=== PATIENT | male | born 1940 | race Caucasian/White ===

== ENCOUNTER 2017-07-20 15:42 | Emergency (ER) | payer OTHER, MEDICARE ==
[~2017-07-20] VITALS: Ht 177.8 cm; Wt 78.3 kg
[2017-07-20] MEDS ORDERED: PRAVACHOL80 MG PO (16:12)
[2017-07-20] MEDS ORDERED: HYDROCHLOROTHIA25 MG PO (16:12)
[2017-07-20] MEDS ORDERED: ZESTRIL2.5 MG PO (16:12)
[2017-07-20] MEDS ORDERED: PRADAXA150 MG PO (16:12)
[2017-07-20] MEDS ORDERED: SYNTHROID25 MCG PO (16:13)
[2017-07-20 17:11] LABS: HEMATOCRIT 36.9 % (38.0-50.0); MCH 31.8 PG (29.0-34.0); MCHC 34.4 G/DL (30.0-36.0); MCV 92.3 FL (86-99); MEAN PLAT.VOLUME 9.9 uM^3 (9.0-12.4); PLATELET COUNT 191 K/uL (156-360); RBC DIS.WIDTH-CV 13.3 % (11.8-14.6); RBC DIS.WIDTH-SD 45.5 % (39-53); WHITE BLOOD COUNT 6.3 K/uL (4.1-10.2)
[2017-07-20 17:20] LABS: CHLORIDE 103 mEq/L (99-109); POTASSIUM 3.7 mEq/L (3.7-5.4); SODIUM 142 mEq/L (136-147)
[2017-07-20 17:21] LABS: GLUCOSE 117 mg/dL (70-99)
[2017-07-20 17:23] LABS: ANION GAP 11 MEQ/L (2-14)
[2017-07-20 17:25] LABS: GFR ESTIMATE (CALCULATED) 57 mL/min/
[2017-07-20 17:26] LABS: UREA NITROGEN (BUN) 25 mg/dL (9-23)
[2017-07-20 17:33] LABS: TROP-I INTERPRETATION NEGATIVE; TROPONIN-I 0.15 ng/mL (0.0-0.30)
[2017-07-20 18:17] VITALS: BP 100/59
== END 2017-07-20 18:19 | disposition home or self-care (01) ==
LOC: EME 15:42
PROVIDERS: Emergency Medicine
DX: E86.0 Dehydration (principal); C61 Malignant neoplasm of prostate; I48.91 Unspecified atrial fibrillation; J44.9 Chronic obstructive pulmonary disease, unspecified; Z79.01 Long term (current) use of anticoagulants; Z95.0 Presence of cardiac pacemaker; Z87.891 Personal history of nicotine dependence
CPT/HCPCS: 71010; 80048; 84484; 85027; 93005; 99281; 99285; J7030

== ENCOUNTER 2018-03-04 12:37 | Inpatient (IN) | payer OTHER, MEDICARE ==
[~2018-03-04] VITALS: Ht 177.8 cm; Wt 75.3 kg
[~2018-03-04 12:37] MED LIST: HYDROCHLOROTHIA25 MG PO; PRADAXA150 MG PO; PRAVACHOL80 MG PO; SYNTHROID100 MCG PO; ZESTRIL2.5 MG PO
[2018-03-04 14:08] LABS: HEMOGLOBIN 13.5 G/DL (12.5-16.6); MCH 30.8 PG (29.0-34.0); MCHC 34.6 G/DL (30.0-36.0); PLATELET COUNT 168 K/uL (156-360); RBC DIS.WIDTH-CV 13.4 % (11.8-14.6); RED BLOOD COUNT 4.38 M/uL (4.00-5.50); WHITE BLOOD COUNT 10.5 K/uL (4.1-10.2)
[2018-03-04 14:19] LABS: INTER. NORMALIZED RATIO 1.2
[2018-03-04 14:20] LABS: ALBUMIN 4.3 g/dL (3.2-4.8)
[2018-03-04 14:21] LABS: CHLORIDE 104 mEq/L (99-109); POTASSIUM 4.2 mEq/L (3.7-5.4); PTT 32.1 SEC (25-37); SODIUM 140 mEq/L (136-147)
[2018-03-04 14:23] LABS: GLUCOSE 112 mg/dL (70-99); TOTAL PROTEIN 7.3 g/dL (6.4-8.3)
[2018-03-04 14:25] LABS: TOTAL BILIRUBIN 0.9 mg/dL (0.0-1.0)
[2018-03-04 14:26] LABS: ALKALINE PHOSPHATASE 102 IU/L (3-129)
[2018-03-04 14:27] LABS: CREATININE 1.1 mg/dL (0.6-1.3); GFR ESTIMATE (CALCULATED) > 59 mL/min/ (58.99-99999)
[2018-03-04 14:28] LABS: AST (GOT) 28 IU/L (2-34); UREA NITROGEN (BUN) 24 mg/dL (9-23)
[2018-03-04 14:29] LABS: ALT (GPT) 27 IU/L (3-49)
[2018-03-04] MEDS ORDERED: SPIRIVA1 INHALATI IH (17:05)
[2018-03-04] MEDS ORDERED: VENTOLIN HFA18 GM IH (17:05)
[2018-03-04 21:17] VITALS: BP 147/68
[2018-03-04 23:47] VITALS: BP 123/63
[2018-03-05 03:48] VITALS: BP 131/63
[2018-03-05 06:44] LABS: HEMATOCRIT 37.3 % (38.0-50.0); HEMOGLOBIN 12.3 G/DL (12.5-16.6); MCH 29.9 PG (29.0-34.0); MCV 90.8 FL (86-99); PLATELET COUNT 145 K/uL (156-360); RBC DIS.WIDTH-CV 13.5 % (11.8-14.6); RBC DIS.WIDTH-SD 45.3 % (39-53); RED BLOOD COUNT 4.11 M/uL (4.00-5.50); WHITE BLOOD COUNT 6.9 K/uL (4.1-10.2)
[2018-03-05 06:59] LABS: INTER. NORMALIZED RATIO 1.3
[2018-03-05 07:07] LABS: ALBUMIN 3.5 G/DL (3.2-4.8); ALKALINE PHOSPHATASE 75 IU/L (3-129); ALT (GPT) 16 IU/L (3-49); AST (GOT) 16 IU/L (2-34); CHLORIDE 105 MEQ/L (99-109); CREATININE 0.9 MG/DL (0.6-1.3); GFR ESTIMATE (CALCULATED) > 59 mL/min/ (58.99-99999); GLUCOSE 112 mg/dL (70-99); SODIUM 140 MEQ/L (136-147); TOTAL BILIRUBIN 0.9 MG/DL (0.0-1.0); TOTAL PROTEIN 5.7 G/DL (6.4-8.3); UREA NITROGEN (BUN) 21 mg/dL (9-23)
[2018-03-05 07:27] VITALS: BP 139/65
[2018-03-05 12:06] VITALS: BP 113/53
[2018-03-05 15:55] VITALS: BP 153/67
[2018-03-05 20:21] VITALS: BP 127/61
[2018-03-05 23:34] VITALS: BP 134/65
[2018-03-06 04:48] VITALS: BP 153/70
[2018-03-06 08:22] VITALS: BP 135/65
[2018-03-06 11:39] VITALS: BP 104/63
[2018-03-06 15:52] VITALS: BP 157/74
[2018-03-06 20:09] VITALS: BP 95/56
[2018-03-06 23:37] VITALS: BP 111/58
[2018-03-07 04:00] VITALS: BP 140/67
[2018-03-07 07:56] VITALS: BP 140/65
[2018-03-07 11:21] VITALS: BP 115/55
== END 2018-03-07 14:10 | DRG 536 ==
LOC: EME 12:37 → 3EAST 18:32 → EDOF 18:32 → ENRESERV 18:35 → CANRESERV 18:35 → ENRESERV 18:44 → 3EAST 20:10
PROVIDERS: Emergency Medicine; Student in an Organized Health Care Education/Training Program
DX: S72.115A Nondisplaced fracture of greater trochanter of left femur, initial encounter for closed fracture (principal); J44.9 Chronic obstructive pulmonary disease, unspecified; I71.4 Abdominal aortic aneurysm, without rupture; I48.2 Chronic atrial fibrillation; I10 Essential (primary) hypertension; W10.9XXA Fall (on) (from) unspecified stairs and steps, initial encounter; R29.6 Repeated falls; Y93.01 Activity, walking, marching and hiking; E03.9 Hypothyroidism, unspecified; Z79.01 Long term (current) use of anticoagulants; Z82.0 Family history of epilepsy and other diseases of the nervous system; Z85.46 Personal history of malignant neoplasm of prostate; Z87.891 Personal history of nicotine dependence; Z95.0 Presence of cardiac pacemaker; Z79.51 Long term (current) use of inhaled steroids; Y92.018 Other place in single-family (private) house as the place of occurrence of the external cause
CPT/HCPCS: 70450; 71045; 72192; 80053; 85027; 85610; 85730; 86850; 86900; 86901; 93005; 94664; 94799; 97530 GO; 99202; 99281; 99285; J3010; J7030